=== PATIENT | male | born 1960 | race Two or more races ===

== ENCOUNTER → 2017-02-16 | Outpatient (REF) | payer BC | LOC: M LAB REF 17:24 | PROVIDERS: ATTEND Surgery | DX: L97.312 Non-pressure chronic ulcer of right ankle with fat layer exposed (principal); I87.311 Chronic venous hypertension (idiopathic) with ulcer of right lower extremity ==

== ENCOUNTER → 2017-06-04 | Outpatient (CLI) | payer BC ==
[~2017-06-04] MED LIST: GASTROGRAFIN SOLUTION 30ML (Q9963) As Ordered ONE; ISOVUE-370 76% 100ML VIAL (Q9967) As Ordered ONE
--- NOTE | 2017-06-05 04:15 | REP ---
Clinical: Idiopathic venous hypertension with lower extremity and lower abdominal pain. Technique: Axial contrast enhanced images from the lung bases to the pubic symphysis using oral and 100 ml Isovue 370 intravenous contrast material with coronal and sagittal re-formations. Comparison: None. Findings: The lung bases demonstrate chronic interstitial changes along with few scattered noncalcified nodules measuring up to approximately 9 mm in the left lower lobe as well as minimal scattered bilateral scarring. Liver, spleen, pancreas, gallbladder, bilateral adrenal glands and kidneys appear relatively normal. Small hiatal hernia identified at the gastroesophageal junction. The enteric system is without obstruction or acute inflammatory process. Scattered diverticula noted without acute diverticulitis. Pelvis demonstrates a 3.5 cm right posterior bladder diverticulum. The prostate gland is mildly prominent and measures up to 4.8 cm transverse diameter. No pelvic fluid or ascites. Subcentimeter mesenteric and retroperitoneal lymph nodes are nonspecific and likely within normal limits. No abdominal pelvic mass lesion identified. Abdominal aorta and vasculature appears normal and without aneurysm or dissection. Musculoskeletal structures demonstrate degenerative changes without focal osseous abnormality. Impression: 1. Lung bases demonstrate scattered noncalcified nodules measuring up to 9 mm warranting contrast enhanced chest CT for further investigation. 2. Scattered colonic diverticula without acute diverticulitis. 3. 2 cm fat containing periumbilical hernia. 4. Scattered colonic diverticula. 5. 3.5 cm right posterior bladder diverticulum. Minimally prominent prostate gland. Signed by Bar Ma MD 06/05/2017 04:07 A
== END ==
LOC: M RAD 14:57
PROVIDERS: ATTEND Surgery
DX: I87.311 Chronic venous hypertension (idiopathic) with ulcer of right lower extremity (principal)
CPT/HCPCS: 74177; Q9963; Q9967

== ENCOUNTER → 2017-12-21 | Outpatient (REF) | payer BC ==
[2017-12-21 19:35] LABS: INR 1.86
[2017-12-21 19:42] LABS: ESTIMATED AVERAGE GLUCOSE 137 MG/DL (60-110); HEMOGLOBIN A1c 6.4 %
== END ==
LOC: M SFHCLACO 19:08
DX: R73.9 Hyperglycemia, unspecified (principal); Z79.01 Long term (current) use of anticoagulants
CPT/HCPCS: 83036

== ENCOUNTER → 2018-01-29 | Outpatient (REF) | payer BC ==
[2018-01-29 18:38] LABS: INR 3.44; PROTHROMBIN TIME 36.3 SECONDS (12.4-14.5)
== END ==
LOC: M SFHCLACO 17:17
DX: Z79.01 Long term (current) use of anticoagulants (principal); Z51.81 Encounter for therapeutic drug level monitoring
CPT/HCPCS: 85610

== ENCOUNTER → 2018-02-13 | Outpatient (REF) | payer BC ==
[2018-02-13 19:40] LABS: INR 2.29; PROTHROMBIN TIME 26.1 SECONDS (12.4-14.5)
== END ==
LOC: M SFHCADAM 15:13
DX: Z79.01 Long term (current) use of anticoagulants (principal)
CPT/HCPCS: 85610

== ENCOUNTER → 2018-03-07 | Outpatient (REF) | payer BC ==
[2018-03-07 19:41] LABS: INR 2.85; PROTHROMBIN TIME 30.6 SECONDS (12.1-14.4)
== END ==
LOC: M SFHCADAM 15:26
DX: Z79.01 Long term (current) use of anticoagulants (principal)
CPT/HCPCS: 85610

== ENCOUNTER → 2018-06-26 | Outpatient (REF) | payer BC ==
[2018-06-26 19:58] LABS: INR 2.75; PROTHROMBIN TIME 29.6 SECONDS (12.1-14.4)
== END ==
LOC: M SFHCLACO 15:22
DX: Z51.81 Encounter for therapeutic drug level monitoring (principal); Z79.01 Long term (current) use of anticoagulants

== ENCOUNTER → 2018-07-03 | Outpatient (REF) | payer BC ==
[2018-07-03 17:22] LABS: PROTHROMBIN TIME 26.6 SECONDS (12.1-14.4)
[2018-07-03 17:25] LABS: ESTIMATED AVERAGE GLUCOSE 134 MG/DL (60-110); HEMOGLOBIN A1c 6.3 %
[2018-07-03 17:47] LABS: ALBUMIN 3.8 GM/DL (3.2-5.2); ALBUMIN/GLOBULIN RATIO 1.31 (1.00-1.93); ALKALINE PHOSPHATASE 62 U/L (45-117); ALT/SGPT 25 U/L (12-78); ANION GAP 5 MEQ/L (8-16); AST/SGOT 18 U/L (7-37); BLOOD UREA NITROGEN 26 MG/DL (7-18); CALCIUM LEVEL 8.7 MG/DL (8.5-10.1); CARBON DIOXIDE LEVEL 32 MEQ/L (21-32); CHLORIDE LEVEL 103 MEQ/L (98-107); CHOLESTEROL LEVEL 181 MG/DL (<200); CHOLESTEROL RISK RATIO 4.525 (<5); CREATININE FOR GFR 1.44 MG/DL (0.70-1.30); GLOMERULAR FILTRATION RATE 53.8 (>56); GLUCOSE, FASTING 81 MG/DL (70-100); HDL CHOLESTEROL 40 MG/DL (>40); LDL CHOLESTEROL 117 MG/DL (<100); NON-HDL-C 141 MG/DL; SODIUM LEVEL 140 MEQ/L (136-145); TOTAL PROTEIN 6.7 GM/DL (6.4-8.2); TRIGLYCERIDES LEVEL 122 MG/DL (<150)
== END ==
LOC: M SFHCLACO 15:01
DX: E11.51 Type 2 diabetes mellitus with diabetic peripheral angiopathy without gangrene (principal); I10 Essential (primary) hypertension; E78.2 Mixed hyperlipidemia; Z79.01 Long term (current) use of anticoagulants

== ENCOUNTER → 2018-07-08 | Outpatient (CLI) | payer BC ==
[2018-07-08 19:22] LABS: VITAMIN B12 LEVEL 308 PG/ML (247-911)
[2018-07-09 10:03] LABS: ALBUMIN 4.28 GM/DL (3.29-5.55); ALBUMIN % 61.2 % (55.8-66.1); ALPHA-1-GLOBULINS 0.28 GM/DL (0.17-0.41); ALPHA-2-GLOBULINS 0.64 GM/DL (0.42-0.99); ALPHA-2-GLOBULINS % 9.1 % (7.1-11.8); BETA-1-GLOBULINS 0.45 GM/DL (0.28-0.60); BETA-1-GLOBULINS % 6.4 % (4.7-7.2); BETA-2-GLOBULINS 0.36 GM/DL (0.19-0.55); BETA-2-GLOBULINS % 5.2 % (3.2-6.5); GAMMA GLOBULIN % 14.1 % (11.1-18.8); GAMMA GLOBULINS 0.99 GM/DL (0.65-1.58)
[2018-07-11 00:07] LABS: ANTI THROMBIN 3 ANTIGEN IMMUNO 76 % (72-124); ANTI THROMBIN 3 FUNCT ACTIVITY 96 % (75-135)
[2018-07-11 00:07] LABS: HOMOCYST(E)INE SERUM 30.2 umol/L (0.0-15.0)
== END ==
LOC: M LABDRWAD 15:49
DX: M79.604 Pain in right leg (principal); M79.605 Pain in left leg; R22.43 Localized swelling, mass and lump, lower limb, bilateral; I82.403 Acute embolism and thrombosis of unspecified deep veins of lower extremity, bilateral
CPT/HCPCS: 84165

== ENCOUNTER → 2018-07-12 | Outpatient (CLI) | payer BC | LOC: M RAD 16:05 | DX: I82.431 Acute embolism and thrombosis of right popliteal vein (principal); M79.604 Pain in right leg; M79.605 Pain in left leg | CPT/HCPCS: 93970 ==

== ENCOUNTER → 2018-08-21 | Outpatient (REF) | payer BC ==
[~2018-08-21] MED LIST changes: +FENO134C PO; +FOLBTAB2 PO; +FOLTTAB9 PO; -GASTROGRAFIN SOLUTION 30ML (Q9963) As Ordered ONE; +HYDR-4517 PO; +HYDR25TAB PO; -ISOVUE-370 76% 100ML VIAL (Q9967) As Ordered ONE; +LOSA100T50 PO; +METO1TAB7 PO; +NEUR800T PO; +PENT400T47 PO; +WARF-23 PO; +WARF05TA PO
[2018-08-21 19:48] LABS: INR 2.78; PROTHROMBIN TIME 29.9 SECONDS (12.1-14.4)
== END ==
LOC: M LABDRWAD 09:36
PROVIDERS: ATTEND Physician Assistant
DX: Z79.01 Long term (current) use of anticoagulants (principal)

== ENCOUNTER → 2018-09-25 | Outpatient (CLI) | payer BC ==
[2018-09-25 15:33] LABS: INR 2.47; PROTHROMBIN TIME 27.3 SECONDS (12.1-14.4)
[2018-09-25 15:46] LABS: ALBUMIN 4.2 GM/DL (3.2-5.2); BILIRUBIN,TOTAL 0.9 MG/DL (0.2-1.0); CALCIUM LEVEL 8.9 MG/DL (8.5-10.1); CHOLESTEROL RISK RATIO 3.702 (<5); CREATININE FOR GFR 1.32 MG/DL (0.70-1.30); GLOMERULAR FILTRATION RATE 59.5 (>56); POTASSIUM SERUM 3.9 MEQ/L (3.5-5.1); TOTAL PROTEIN 6.9 GM/DL (6.4-8.2)
[2018-09-25 15:48] LABS: HEMOGLOBIN A1c 6.6 %
== END ==
LOC: M LAB 14:50
PROVIDERS: ATTEND Physician Assistant
DX: I10 Essential (primary) hypertension (principal); E78.2 Mixed hyperlipidemia; E11.51 Type 2 diabetes mellitus with diabetic peripheral angiopathy without gangrene; Z79.01 Long term (current) use of anticoagulants

== ENCOUNTER → 2018-12-25 | Outpatient (REF) | payer BC ==
[2018-12-25 20:45] LABS: ALBUMIN 4.2 GM/DL (3.2-5.2); BILIRUBIN,TOTAL 0.4 MG/DL (0.2-1.0); CALCIUM LEVEL 8.8 MG/DL (8.5-10.1); CHOLESTEROL RISK RATIO 4.35 (<5); CREATININE FOR GFR 1.7 MG/DL (0.70-1.30); GLOMERULAR FILTRATION RATE 44.3 (>56); POTASSIUM SERUM 4.2 MEQ/L (3.5-5.1)
[2018-12-25 21:06] LABS: HEMOGLOBIN A1c 6.5 %
== END ==
LOC: M SFHCADAM 15:59
PROVIDERS: ATTEND Physician Assistant
DX: I10 Essential (primary) hypertension (principal); E11.51 Type 2 diabetes mellitus with diabetic peripheral angiopathy without gangrene; E78.2 Mixed hyperlipidemia

== ENCOUNTER → 2019-01-01 | Outpatient (REF) | payer BC ==
[2019-01-01 19:32] LABS: INR 2.45; PROTHROMBIN TIME 27.1 SECONDS (12.1-14.4)
== END ==
LOC: M SFHCADAM 15:51
PROVIDERS: ATTEND Physician Assistant
DX: Z79.01 Long term (current) use of anticoagulants (principal)

== ENCOUNTER → 2019-03-04 | Outpatient (REF) | payer BC ==
[2019-03-04 19:54] LABS: INR 2.52
== END ==
LOC: M SFHCADAM 15:56
PROVIDERS: ATTEND Physician Assistant
DX: Z79.01 Long term (current) use of anticoagulants (principal)

== ENCOUNTER → 2019-04-10 | Outpatient (REF) | payer BC ==
[2019-04-10 19:22] LABS: ALBUMIN 3.8 GM/DL (3.2-5.2); BILIRUBIN,TOTAL 0.6 MG/DL (0.2-1.0); CALCIUM LEVEL 8.7 MG/DL (8.5-10.1); CHOLESTEROL RISK RATIO 3.72 (<5); CREATININE FOR GFR 1.7 MG/DL (0.70-1.30); GLOMERULAR FILTRATION RATE 44.3 (>56); TOTAL PROTEIN 6.7 GM/DL (6.4-8.2)
[2019-04-10 19:45] LABS: INR 2.59; PROTHROMBIN TIME 27.6 SECONDS (11.8-14.0)
[2019-04-10 20:46] LABS: HEMOGLOBIN A1c 6.7 %
== END ==
LOC: M SFHCADAM 15:35
PROVIDERS: ATTEND Physician Assistant
DX: I10 Essential (primary) hypertension (principal); E78.2 Mixed hyperlipidemia; E11.51 Type 2 diabetes mellitus with diabetic peripheral angiopathy without gangrene; Z79.01 Long term (current) use of anticoagulants

== ENCOUNTER → 2019-05-13 | Outpatient (POV) | payer BC ==
[~2019-05-13] VITALS: Ht 182.9 cm; Wt 111.4 kg
[2019-05-13 15:00] VITALS: BP 129/66
--- NOTE | 2019-05-14 15:47 | IRCOV ---
[facility] IR Consult Office Visit IR Consult Office Visit DATE: May 13, 2019 REASON FOR CONSULTATION/CHIEF COMPLAINT: Bilateral lower extremity ulcers. HISTORY OF PRESENT ILLNESS: 58-year-old male with protein S deficiency, hypercoagulable state and prior deep vein thrombosis, presents with chronic bilateral lower extremity venous hypertension and stasis ulcers. These are under the care of wound care with regular wound debridement, Hydrofera Blue dressings and Unna boot for compression without significant progression in healing. Patient reports prior vein stripping procedure several years ago after which pain and ulcers started. Patient is unable to stand because of pain. Complains of burning and tingling in the legs. Patient has been on blood thinners for over 6 years. No history of thrombolysis. ALLERGIES: Please see below. HOME MEDICATIONS: Please see below. PAST MEDICAL HISTORY: Venous ulcers. Hypertension. High cholesterol. PAST SURGICAL HISTORY: Vein stripping bilateral 2016 FAMILY HISTORY: Nonsignificant. SOCIAL HISTORY: Denies alcohol. Nonsmoker. REVIEW OF SYSTEMS: Otherwise negative. PHYSICAL EXAMINATION: VITAL SIGNS: Please see below. GENERAL APPEARANCE: Comfortable at rest. Distress on walking. HEENT: No scleral icterus. RESPIRATORY: Symmetric breath sounds. CARDIOVASCULAR: Normal rate. ABDOMEN: Soft nontender. Nondistended. EXTREMITIES: Right lower extremity: Edema to the knees. Skin changes, skin thickening. Compression and Unna boot Right lower extremity: Edema to the knees. Skin changes, skin thickening, Compression dressing. NEUROLOGICAL: Alert and oriented. PSYCHIATRIC: Appropriate to circumstance. LABORATORY DATA: Please see below. Imaging: I personally reviewed the ultrasound of the deep venous structures obtained in June 2018. At that time, the deep veins of bilateral lower extremities appeared grossly patent. No superficial venous study available. ASSESSMENT/PLAN: 58-year-old male with chronic bilateral venous hypertension CEAP 6 with nonhealing active venous ulcers. History of vein stripping and prior blood clots. Patient requires thorough ultrasound imaging of the deep and superficial venous system in the legs before any further intervention can be planned. I will schedule the patient for the study. I spent 30 minutes in consultation with the patient. Thank you for this referral. Allergies Coded Allergies: No Known Allergies (Unverified , 07/04/18) Home Medications Scheduled Cyanocobalamin/Folic AC/Vit B6 (Folbee Tablet), 1 TAB PO BID Fenofibrate,Micronized (Fenofibrate), 134 MG PO DAILY, (Reported) Gabapentin (Neurontin), 800 MG PO TID, (Reported) Hydrochlorothiazide (Hydrochlorothiazide), 25 MG PO DAILY, (Reported) Losartan Potassium (Losartan Potassium), 100 MG PO DAILY, (Reported) Metoprolol Succinate (Metoprolol Succinate), 50 MG PO DAILY, (Reported) Pentoxifylline (Pentoxifylline), 400 MG PO BID, (Reported) Warfarin Sodium (Warfarin Sodium), 5 MG PO DAILY, (Reported) Scheduled PRN Hydrocodone/Acetaminophen (Hydrocodone-Acetamin 10-325 mg), 1 TAB PO QIDP PRN for pain, (Reported) VS, I&O, 24H, Fishbone Vital Signs/I&O Vital Signs Date Time Temp Pulse Resp B/P (MAP) Pulse Ox O2 Delivery O2 Flow Rate FiO2 05/13/19 15:00 97.4 67 16 129/66 (87) 94 REAL GOSS MD May 14, 2019 15:47
== END ==
LOC: M IRPOV 15:06
PROVIDERS: ATTEND Radiology Diagnostic Radiology
DX: I87.333 Chronic venous hypertension (idiopathic) with ulcer and inflammation of bilateral lower extremity (principal); I10 Essential (primary) hypertension; E78.00 Pure hypercholesterolemia, unspecified; D53.0 Protein deficiency anemia; Z86.718 Personal history of other venous thrombosis and embolism

== ENCOUNTER → 2019-05-27 | Outpatient (REF) | payer BC ==
[2019-05-27 19:49] LABS: INR 3.37; PROTHROMBIN TIME 34.1 SECONDS (11.8-14.0)
== END ==
LOC: M SFHCADAM 16:20
PROVIDERS: ATTEND Physician Assistant
DX: Z79.01 Long term (current) use of anticoagulants (principal)

== ENCOUNTER → 2019-06-24 | Outpatient (REF) | payer BC ==
[2019-06-24 19:51] LABS: INR 3.95; PROTHROMBIN TIME 38.7 SECONDS (11.8-14.0)
== END ==
LOC: M SFHCADAM 15:29
PROVIDERS: ATTEND Physician Assistant
DX: Z79.01 Long term (current) use of anticoagulants (principal)

== ENCOUNTER → 2019-07-02 | Outpatient (REF) | payer BC ==
[2019-07-02 19:50] LABS: BASO # 0.1 10^3/uL (0.0-0.2); BASO % 0.7 % (0.0-1.0); EOS # 0.3 10^3/uL (0.0-0.5); EOS % 3.9 % (0.0-3.0); HEMATOCRIT 42.4 % (42.0-52.0); HEMOGLOBIN 13.5 g/dl (13.5-17.5); LYMPH # 1.5 10^3/uL (1.5-5.0); LYMPH % 22.5 % (24.0-44.0); MEAN CORPUSCULAR HEMOGLOBIN 29.7 pg (27.0-33.0); MEAN CORPUSCULAR HGB CONC 31.8 g/dl (32.0-36.5); MEAN CORPUSCULAR VOLUME 93.2 fl (80.0-96.0); MONO # 0.7 10^3/uL (0.0-0.8); MONO % 9.9 % (0.0-5.0); NEUTROPHILS # 4.2 10^3/uL (1.5-8.5); NEUTROPHILS % 62.7 % (36.0-66.0); PLATELET COUNT, AUTOMATED 185 10^3/uL (150-450); RED BLOOD COUNT 4.55 10^6/uL (4.30-6.10); WHITE BLOOD COUNT 6.7 10^3/uL (4.0-10.0)
[2019-07-02 19:56] LABS: ALBUMIN 3.7 GM/DL (3.2-5.2)
== END ==
LOC: M LABDRWAD 19:06
PROVIDERS: ATTEND Orthopaedic Surgery
DX: Z01.818 Encounter for other preprocedural examination (principal); D63.8 Anemia in other chronic diseases classified elsewhere; M25.559 Pain in unspecified hip; M16.12 Unilateral primary osteoarthritis, left hip

== ENCOUNTER → 2019-07-21 | Outpatient (REF) | payer BC ==
[2019-07-21 20:38] LABS: INR 2.98; PROTHROMBIN TIME 30.9 SECONDS (11.8-14.0)
== END ==
LOC: M SFHCADAM 15:59
PROVIDERS: ATTEND Physician Assistant
DX: Z79.01 Long term (current) use of anticoagulants (principal)

== ENCOUNTER → 2019-07-31 | Outpatient (REF) | payer BC ==
[2019-07-31 18:02] LABS: BASO # 0.1 10^3/uL (0.0-0.2); BASO % 0.8 % (0.0-1.0); EOS # 0.2 10^3/uL (0.0-0.5); EOS % 2.7 % (0.0-3.0); HEMATOCRIT 42.8 % (42.0-52.0); HEMOGLOBIN 14.1 g/dl (13.5-17.5); LYMPH # 1.4 10^3/uL (1.5-5.0); LYMPH % 19.1 % (24.0-44.0); MEAN CORPUSCULAR HEMOGLOBIN 29.7 pg (27.0-33.0); MEAN CORPUSCULAR HGB CONC 32.9 g/dl (32.0-36.5); MEAN CORPUSCULAR VOLUME 90.1 fl (80.0-96.0); MONO # 0.7 10^3/uL (0.0-0.8); MONO % 9.1 % (0.0-5.0); PLATELET COUNT, AUTOMATED 196 10^3/uL (150-450); RED BLOOD COUNT 4.75 10^6/uL (4.30-6.10); WHITE BLOOD COUNT 7.3 10^3/uL (4.0-10.0)
[2019-07-31 18:09] LABS: ALBUMIN 3.9 GM/DL (3.2-5.2); BILIRUBIN,TOTAL 0.6 MG/DL (0.2-1.0); CALCIUM LEVEL 8.7 MG/DL (8.5-10.1); CHOLESTEROL RISK RATIO 3.425 (<5); CREATININE FOR GFR 1.48 MG/DL (0.70-1.30); FREE T4 1.27 NG/DL (0.76-1.46); POTASSIUM SERUM 3.9 MEQ/L (3.5-5.1); THYROID STIMULATING HORMONE 1.09 uIU/ML (0.358-3.740); TOTAL PROTEIN 6.8 GM/DL (6.4-8.2)
[2019-07-31 18:21] LABS: INR 2.44; PROTHROMBIN TIME 26.3 SECONDS (11.8-14.0)
[2019-07-31 18:22] LABS: PARTIAL THROMBOPLASTIN TIME 38.1 SECONDS (25.0-38.4)
== END ==
LOC: M SFHCPLAZ 15:25
PROVIDERS: ATTEND Family Medicine
DX: Z01.818 Encounter for other preprocedural examination (principal); E11.51 Type 2 diabetes mellitus with diabetic peripheral angiopathy without gangrene; Z86.718 Personal history of other venous thrombosis and embolism

== ENCOUNTER → 2019-08-25 | Outpatient (REF) | payer BC ==
[2019-08-25 20:05] LABS: INR 2.33; PROTHROMBIN TIME 25.4 SECONDS (11.8-14.0)
[2019-08-25 20:06] LABS: PARTIAL THROMBOPLASTIN TIME 37.4 SECONDS (25.0-38.4)
== END ==
LOC: M SFHCPLAZ 18:55
PROVIDERS: ATTEND Family Medicine
DX: Z86.718 Personal history of other venous thrombosis and embolism (principal)

== ENCOUNTER → 2019-10-20 | Outpatient (REF) | payer BC ==
[2019-10-20 19:34] LABS: INR 2.25; PROTHROMBIN TIME 24.7 SECONDS (11.8-14.0)
[2019-10-20 19:35] LABS: PARTIAL THROMBOPLASTIN TIME 37.9 SECONDS (25.0-38.4)
== END ==
LOC: M LABDRWAD 19:17
PROVIDERS: ATTEND Family Medicine
DX: Z79.01 Long term (current) use of anticoagulants (principal); Z79.899 Other long term (current) drug therapy

== ENCOUNTER → 2019-11-27 | Outpatient (REF) | payer BC ==
[2019-11-27 19:43] LABS: INR 2.05; PROTHROMBIN TIME 22.9 SECONDS (11.8-14.0)
== END ==
LOC: M SFHCADAM 15:32
PROVIDERS: ATTEND Physician Assistant
DX: Z79.01 Long term (current) use of anticoagulants (principal)

== ENCOUNTER → 2019-12-30 | Outpatient (REF) | payer BC ==
[2019-12-30 18:54] LABS: INR 2.03; PROTHROMBIN TIME 22.8 SECONDS (11.8-14.0)
== END ==
LOC: M SFHCADAM 16:46
PROVIDERS: ATTEND Physician Assistant
DX: Z79.01 Long term (current) use of anticoagulants (principal)

== ENCOUNTER → 2019-12-30 | Outpatient (CLI) | payer BC ==
[2019-12-30 19:09] LABS: C REACTIVE PROTEIN QUANTITATIV 0.36 MG/DL (0.00-0.30); RHEUMATOID FACTOR QUANT < 10.0 IU/ML (<15.0)
[2020-01-06 14:11] LABS: ANTINUCLEAR ANTIBODIES DIRECT Negative (Negative); CYCLIC CITRULLINATED PEPTIDE 10 units (0-19); HLA-B27 Negative (.)
== END ==
LOC: M LABDRWAD 16:42
PROVIDERS: ATTEND Nurse Practitioner Family
DX: M06.4 Inflammatory polyarthropathy (principal)

== ENCOUNTER → 2019-12-30 | Outpatient (CLI) | payer BC ==
--- NOTE | 2019-12-31 04:09 | REP ---
Clinical: Right shoulder pain. Technique: Internal rotation, external rotation, and Y view of the right shoulder. Findings: Cortical irregularity at the acromioclavicular joint along with subtle irregular blunting and sclerosis involving the inferior half of the glenoid rim. No acute fracture dislocation. Subacromial space is normal. No periarticular calcifications or loose bodies are identified. Impression: Mild arthritic changes. Electronically Signed by Bar Ma MD 12/31/2019 04:00 A
== END ==
LOC: M ADAMS 16:28
PROVIDERS: ATTEND Nurse Practitioner Family
DX: M75.41 Impingement syndrome of right shoulder (principal)

== ENCOUNTER → 2020-02-18 | Outpatient (REF) | payer BC ==
[2020-02-18 19:04] LABS: INR 2.15; PROTHROMBIN TIME 23.8 SECONDS (11.8-14.0)
== END ==
LOC: M SFHCADAM 15:31
PROVIDERS: ATTEND Physician Assistant
DX: Z79.01 Long term (current) use of anticoagulants (principal)

== ENCOUNTER → 2020-06-24 | Outpatient (REF) | payer BC ==
[2020-06-24 17:32] LABS: INR 1.75; PROTHROMBIN TIME 20.8 SECONDS (12.5-14.3)
== END ==
LOC: M SFHCADAM 15:30
PROVIDERS: ATTEND Physician Assistant
DX: Z79.01 Long term (current) use of anticoagulants (principal)

== ENCOUNTER → 2020-08-05 | Outpatient (REF) | payer BC ==
[2020-08-06 13:32] LABS: INR 1.6; PROTHROMBIN TIME 19.4 SECONDS (12.5-14.3)
[2020-08-06 13:51] LABS: ALBUMIN 3.7 GM/DL (3.2-5.2); BILIRUBIN,TOTAL 0.6 MG/DL (0.2-1.0); CHOLESTEROL RISK RATIO 3.7 (<5); CREATININE FOR GFR 1.73 MG/DL (0.70-1.30); GLOMERULAR FILTRATION RATE 43.3 (>56); POTASSIUM SERUM 5.6 MEQ/L (3.5-5.1); TOTAL PROTEIN 6.7 GM/DL (6.4-8.2)
== END ==
LOC: M SFHCADAM 15:35
PROVIDERS: ATTEND Physician Assistant
DX: E11.51 Type 2 diabetes mellitus with diabetic peripheral angiopathy without gangrene (principal); Z01.818 Encounter for other preprocedural examination; Z79.01 Long term (current) use of anticoagulants

== ENCOUNTER → 2020-08-18 | Outpatient (REF) | payer BC | LOC: M LAB 21:47 | PROVIDERS: ATTEND Physician Assistant | DX: Z20.828 Contact with and (suspected) exposure to other viral communicable diseases (principal) ==

== ENCOUNTER → 2020-09-02 | Outpatient (REF) | payer BC ==
[2020-09-02 17:23] LABS: INR 3.96; PROTHROMBIN TIME 39.6 SECONDS (12.5-14.3)
== END ==
LOC: M SFHCADAM 15:10
PROVIDERS: ATTEND Physician Assistant
DX: Z79.01 Long term (current) use of anticoagulants (principal)

== ENCOUNTER → 2020-10-20 | Outpatient (REF) | payer BC ==
[~2020-10-20] MED LIST changes: +HYDR-3490 PO; -HYDR25TAB PO
[2020-10-20 19:22] LABS: INR 1.9; PROTHROMBIN TIME 22.2 SECONDS (12.5-14.3)
== END ==
LOC: M SFHCADAM 15:54
PROVIDERS: ATTEND Physician Assistant
DX: Z79.01 Long term (current) use of anticoagulants (principal)

== ENCOUNTER → 2020-11-25 | Outpatient (REF) | payer BC ==
[2020-11-25 18:51] LABS: INR 3.55; PROTHROMBIN TIME 36.3 SECONDS (12.5-14.3)
== END ==
LOC: M SFHCPLAZ 15:36 → M SFHCADAM 15:42
PROVIDERS: ATTEND Physician Assistant
DX: Z79.01 Long term (current) use of anticoagulants (principal)

== ENCOUNTER → 2021-01-05 | Outpatient (REF) | payer BC ==
[2021-01-05 19:34] LABS: INR 3.08; PROTHROMBIN TIME 32.5 SECONDS (12.5-14.3)
== END ==
LOC: M SFHCPLAZ 15:39 → M SFHCADAM 15:43
PROVIDERS: ATTEND Physician Assistant
DX: Z79.01 Long term (current) use of anticoagulants (principal)

== ENCOUNTER → 2021-01-10 | Outpatient (REF) | payer BC ==
[2021-01-10 18:44] LABS: INR 3.51
== END ==
LOC: M SFHCADAM 15:39
PROVIDERS: ATTEND Physician Assistant
DX: Z79.01 Long term (current) use of anticoagulants (principal)

== ENCOUNTER → 2021-01-26 | Outpatient (REF) | payer BC ==
[2021-01-26 19:01] LABS: INR 3.08; PROTHROMBIN TIME 32.5 SECONDS (12.5-14.3)
== END ==
LOC: M SFHCADAM 18:21
PROVIDERS: ATTEND Physician Assistant
DX: Z79.01 Long term (current) use of anticoagulants (principal)

== ENCOUNTER → 2021-02-03 | Outpatient (REF) | payer BC ==
[2021-02-03 18:06] LABS: INR 2.7; PROTHROMBIN TIME 29.3 SECONDS (12.5-14.3)
[2021-02-03 18:09] LABS: ALBUMIN 3.7 GM/DL (3.2-5.2); ALT/SGPT 20 U/L (12-78); BILIRUBIN,TOTAL 0.8 MG/DL (0.2-1.0); BLOOD UREA NITROGEN 23 MG/DL (7-18); CALCIUM LEVEL 8.6 MG/DL (8.8-10.2); CARBON DIOXIDE LEVEL 32 MEQ/L (21-32); CHLORIDE LEVEL 101 MEQ/L (98-107); CHOLESTEROL LEVEL 133 MG/DL (<200); CHOLESTEROL RISK RATIO 2.829 (<5); CREATININE FOR GFR 1.21 MG/DL (0.70-1.30); GLOMERULAR FILTRATION RATE > 60.0 (>49); GLUCOSE, FASTING 77 MG/DL (70-100); HDL CHOLESTEROL 47 MG/DL (>40); HEMOGLOBIN A1c 5.8 %; LDL CHOLESTEROL 69 MG/DL (<100); NON-HDL-C 86 MG/DL; SODIUM LEVEL 138 MEQ/L (136-145); TOTAL PROTEIN 6.7 GM/DL (6.4-8.2); TRIGLYCERIDES LEVEL 83 MG/DL (<150)
== END ==
LOC: M SFHCADAM 15:31
PROVIDERS: ATTEND Physician Assistant
DX: Z01.818 Encounter for other preprocedural examination (principal); E11.51 Type 2 diabetes mellitus with diabetic peripheral angiopathy without gangrene; Z86.718 Personal history of other venous thrombosis and embolism

== ENCOUNTER → 2021-03-24 | Outpatient (REF) | payer BC ==
[2021-03-24 18:36] LABS: INR 3.15; PROTHROMBIN TIME 33.1 SECONDS (12.5-14.3)
== END ==
LOC: M SFHCADAM 15:30
PROVIDERS: ATTEND Physician Assistant
DX: Z86.718 Personal history of other venous thrombosis and embolism (principal); Z79.01 Long term (current) use of anticoagulants

== ENCOUNTER → 2021-04-13 | Outpatient (REF) | payer BC ==
[2021-04-13 17:51] LABS: INR 2.9; PROTHROMBIN TIME 30.7 SECONDS (12.7-14.5)
== END ==
LOC: M SFHCADAM 15:55
PROVIDERS: ATTEND Physician Assistant
DX: Z86.718 Personal history of other venous thrombosis and embolism (principal); Z79.01 Long term (current) use of anticoagulants

== ENCOUNTER → 2021-04-28 | Outpatient (REF) | payer BC ==
[2021-04-28 20:28] LABS: INR 1.99
== END ==
LOC: M SFHCADAM 15:31
PROVIDERS: ATTEND Physician Assistant
DX: Z86.718 Personal history of other venous thrombosis and embolism (principal); Z79.01 Long term (current) use of anticoagulants

== ENCOUNTER → 2021-05-24 | Outpatient (REF) | payer BC ==
[2021-05-24 19:16] LABS: INR 2.91; PROTHROMBIN TIME 30.7 SECONDS (12.7-14.5)
== END ==
LOC: M SFHCADAM 15:40
PROVIDERS: ATTEND Physician Assistant
DX: Z86.718 Personal history of other venous thrombosis and embolism (principal)

== ENCOUNTER → 2021-05-25 | Outpatient (REF) | payer BC ==
[2021-05-25 18:07] LABS: BASO % 0.6 % (0.0-1.0); EOS # 0.2 10^3/uL (0.0-0.5); EOS % 3.2 % (0.0-3.0); HEMATOCRIT 42.9 % (42.0-52.0); HEMOGLOBIN 14.3 g/dl (13.5-17.5); LYMPH # 1.2 10^3/uL (1.5-5.0); LYMPH % 17.8 % (24.0-44.0); MEAN CORPUSCULAR HGB CONC 33.3 g/dl (32.0-36.5); MEAN CORPUSCULAR VOLUME 89.9 fl (80.0-96.0); MONO # 0.7 10^3/uL (0.0-0.8); NEUTROPHILS # 4.5 10^3/uL (1.5-8.5); NEUTROPHILS % 67.9 % (36.0-66.0); PLATELET COUNT, AUTOMATED 177 10^3/uL (150-450); RED BLOOD COUNT 4.77 10^6/uL (4.30-6.10); WHITE BLOOD COUNT 6.6 10^3/uL (4.0-10.0)
[2021-05-25 18:27] LABS: ALBUMIN 3.5 GM/DL (3.2-5.2); PERCENT SATURATION 19.7 % (19.7-50.0)
== END ==
LOC: M LABDRWAD 17:07
PROVIDERS: ATTEND Orthopaedic Surgery
DX: M25.559 Pain in unspecified hip (principal); M16.12 Unilateral primary osteoarthritis, left hip; Z01.818 Encounter for other preprocedural examination

== ENCOUNTER → 2021-06-15 | Outpatient (REF) | payer BC ==
[2021-06-15 17:31] LABS: INR 2.78; PROTHROMBIN TIME 29.7 SECONDS (12.7-14.5)
== END ==
LOC: M SFHCADAM 15:35
PROVIDERS: ATTEND Physician Assistant
DX: Z86.718 Personal history of other venous thrombosis and embolism (principal)

== ENCOUNTER → 2021-07-06 | Outpatient (REF) | payer BC ==
[2021-07-06 17:59] LABS: INR 2.96; PROTHROMBIN TIME 31.2 SECONDS (12.7-14.5)
== END ==
LOC: M SFHCADAM 15:32
PROVIDERS: ATTEND Physician Assistant
DX: Z86.718 Personal history of other venous thrombosis and embolism (principal)

== ENCOUNTER → 2021-08-16 | Outpatient (REF) | payer BC ==
[2021-08-16 18:27] LABS: INR 4.45; PROTHROMBIN TIME 42.5 SECONDS (12.7-14.5)
== END ==
LOC: M SFHCADAM 15:39
PROVIDERS: ATTEND Physician Assistant
DX: Z86.718 Personal history of other venous thrombosis and embolism (principal)

== ENCOUNTER → 2021-10-18 | Outpatient (REF) | payer BC ==
[~2021-10-18] MED LIST changes: +LOSA100T45 PO; -LOSA100T50 PO
[2021-10-18 19:19] LABS: INR 2.41; PROTHROMBIN TIME 26.6 SECONDS (12.7-14.5)
== END ==
LOC: M SFHCADAM 15:46
PROVIDERS: ATTEND Physician Assistant
DX: Z86.718 Personal history of other venous thrombosis and embolism (principal)

== ENCOUNTER → 2021-11-23 | Outpatient (REF) | payer BC ==
[~2021-11-23] MED LIST changes: -FENO134C PO; +FENO134C16 PO
[2021-11-23 17:00] LABS: ALBUMIN 3.9 GM/DL (3.2-5.2); BILIRUBIN,TOTAL 0.7 MG/DL (0.2-1.0); CALCIUM LEVEL 9.1 MG/DL (8.8-10.2); CREATININE FOR GFR 1.39 MG/DL (0.70-1.30); GLOMERULAR FILTRATION RATE 55.3 (>49); POTASSIUM SERUM 3.9 MEQ/L (3.5-5.1); TOTAL PROTEIN 7.1 GM/DL (6.4-8.2)
[2021-11-23 17:01] LABS: BASO # 0.1 10^3/uL (0.0-0.2); BASO % 0.6 % (0.0-1.0); EOS # 0.2 10^3/uL (0.0-0.5); EOS % 2.3 % (0.0-3.0); HEMATOCRIT 45.7 % (42.0-52.0); HEMOGLOBIN 15.3 g/dl (13.5-17.5); LYMPH # 1.5 10^3/uL (1.5-5.0); LYMPH % 18.5 % (24.0-44.0); MEAN CORPUSCULAR HEMOGLOBIN 29.4 pg (27.0-33.0); MEAN CORPUSCULAR HGB CONC 33.5 g/dl (32.0-36.5); MEAN CORPUSCULAR VOLUME 87.9 fl (80.0-96.0); MONO # 0.7 10^3/uL (0.0-0.8); MONO % 8.7 % (2.0-8.0); NEUTROPHILS # 5.4 10^3/uL (1.5-8.5); NEUTROPHILS % 69.5 % (36.0-66.0); PLATELET COUNT, AUTOMATED 168 10^3/uL (150-450); WHITE BLOOD COUNT 7.8 10^3/uL (4.0-10.0)
[2021-11-23 17:27] LABS: INR 1.92; PROTHROMBIN TIME 22.4 SECONDS (12.7-14.5)
[2021-11-23 17:43] LABS: HEMOGLOBIN A1c 6.2 %
== END ==
LOC: M SFHCADAM 14:08
PROVIDERS: ATTEND Family Medicine
DX: Z01.818 Encounter for other preprocedural examination (principal); I82.409 Acute embolism and thrombosis of unspecified deep veins of unspecified lower extremity

== ENCOUNTER → 2021-12-29 | Outpatient (REF) | payer BC ==
[2021-12-29 19:16] LABS: INR 1.68; PROTHROMBIN TIME 20.2 SECONDS (12.7-14.5)
== END ==
LOC: M SFHCADAM 14:09
PROVIDERS: ATTEND Physician Assistant
DX: Z86.718 Personal history of other venous thrombosis and embolism (principal)

== ENCOUNTER → 2022-02-08 | Outpatient (REF) | payer BC ==
[2022-02-08 17:30] LABS: INR 2.37; PROTHROMBIN TIME 26.3 SECONDS (12.7-14.5)
== END ==
LOC: M SFHCADAM 15:29
PROVIDERS: ATTEND Physician Assistant
DX: Z86.718 Personal history of other venous thrombosis and embolism (principal)

== ENCOUNTER → 2022-03-08 | Outpatient (REF) | payer BC ==
[2022-03-09 13:01] LABS: ALBUMIN 4.3 GM/DL (3.2-5.2); CALCIUM LEVEL 9.6 MG/DL (8.8-10.2); CHOLESTEROL RISK RATIO 2.87 (<5); CREATININE FOR GFR 1.48 MG/DL (0.70-1.30); GLOMERULAR FILTRATION RATE 51.4 (>49); POTASSIUM SERUM 4.3 MEQ/L (3.5-5.1); TOTAL PROTEIN 7.1 GM/DL (6.4-8.2)
[2022-03-09 13:49] LABS: HEMOGLOBIN A1c 5.9 %
== END ==
LOC: M SFHCADAM 16:09
PROVIDERS: ATTEND Family Medicine
DX: R39.9 Unspecified symptoms and signs involving the genitourinary system (principal); E78.2 Mixed hyperlipidemia; E11.51 Type 2 diabetes mellitus with diabetic peripheral angiopathy without gangrene
CPT/HCPCS: 80053; 80061; 83036; G0103

== ENCOUNTER → 2022-03-23 | Outpatient (CLI) | payer BC | LOC: M RAD 15:27 | PROVIDERS: ATTEND Family Medicine | DX: I82.433 Acute embolism and thrombosis of popliteal vein, bilateral (principal); I82.413 Acute embolism and thrombosis of femoral vein, bilateral ==

== ENCOUNTER → 2022-05-02 | Outpatient (CLI) | payer BC | LOC: M ADAMS 15:32 | PROVIDERS: ATTEND Family Medicine | DX: M47.896 Other spondylosis, lumbar region (principal); G89.29 Other chronic pain ==

== ENCOUNTER → 2022-10-16 | Outpatient (CLI) | payer OTHER ==
[~2022-10-16] MED LIST changes: -FENO134C16 PO; +FENO134C20 PO
== END ==
LOC: M SLEEP HO 11:24
PROVIDERS: ATTEND Physician Assistant
DX: R40.0 Somnolence (principal); R06.83 Snoring; G47.30 Sleep apnea, unspecified

== ENCOUNTER → 2023-01-08 | Outpatient (REF) | payer OTHER ==
[~2023-01-08] MED LIST changes: -LOSA100T45 PO; +LOSA100T46 PO
== END ==
LOC: M SFHCADAM 16:58
PROVIDERS: ATTEND Family Medicine
DX: Z79.01 Long term (current) use of anticoagulants (principal); Z53.9 Procedure and treatment not carried out, unspecified reason

== ENCOUNTER → 2023-08-08 | Outpatient (CLI) | payer OTHER | LOC: M SLEEP 20:00 | PROVIDERS: ATTEND Physician Assistant | DX: G47.33 Obstructive sleep apnea (adult) (pediatric) (principal) ==

== ENCOUNTER → 2023-11-13 | Outpatient (REF) | payer MEDICAID, OTHER | LOC: M SFHCADAM 15:57 | PROVIDERS: ATTEND Family Medicine | DX: Z79.01 Long term (current) use of anticoagulants (principal) ==

== ENCOUNTER → 2023-11-16 | Outpatient (REF) | payer MEDICAID | LOC: M SFHCADAM 15:07 | PROVIDERS: ATTEND Family Medicine | DX: Z79.01 Long term (current) use of anticoagulants (principal) ==

== ENCOUNTER → 2023-12-04 | Outpatient (REF) | payer MEDICAID, OTHER | LOC: M SFHCADAM 17:03 | PROVIDERS: ATTEND Family Medicine | DX: Z79.01 Long term (current) use of anticoagulants (principal) ==

== ENCOUNTER → 2024-01-28 | Outpatient (CLI) | payer OTHER | LOC: M PAIN 08:00 | PROVIDERS: ATTEND Nurse Practitioner Family | DX: M54.16 Radiculopathy, lumbar region (principal); M25.551 Pain in right hip; G89.4 Chronic pain syndrome; E78.2 Mixed hyperlipidemia; M16.0 Bilateral primary osteoarthritis of hip; I12.9 Hypertensive chronic kidney disease with stage 1 through stage 4 chronic kidney disease, or unspecified chronic kidney disease; E11.22 Type 2 diabetes mellitus with diabetic chronic kidney disease; E66.9 Obesity, unspecified; N18.30 Chronic kidney disease, stage 3 unspecified; G47.33 Obstructive sleep apnea (adult) (pediatric); Z87.891 Personal history of nicotine dependence; Z79.01 Long term (current) use of anticoagulants; Z79.899 Other long term (current) drug therapy; Z86.718 Personal history of other venous thrombosis and embolism; Z88.8 Allergy status to other drugs, medicaments and biological substances; Z68.32 Body mass index [BMI] 32.0-32.9, adult ==

== ENCOUNTER → 2024-03-13 | Outpatient (REF) | payer OTHER, MEDICAID | LOC: M LAB REF 16:14 | PROVIDERS: ATTEND Physician Assistant | DX: L97.922 Non-pressure chronic ulcer of unspecified part of left lower leg with fat layer exposed (principal) ==

== ENCOUNTER → 2024-03-14 | Outpatient (CLI) | payer OTHER, MEDICAID | LOC: M PLARAD 14:22 | PROVIDERS: ATTEND Nurse Practitioner Family | DX: M16.11 Unilateral primary osteoarthritis, right hip (principal); M54.16 Radiculopathy, lumbar region; Z96.642 Presence of left artificial hip joint; M51.86 Other intervertebral disc disorders, lumbar region ==

== ENCOUNTER → 2024-03-24 | Outpatient (CLI) | payer OTHER, MEDICAID | LOC: M PAIN 16:00 | PROVIDERS: ATTEND Nurse Practitioner Family | DX: M54.16 Radiculopathy, lumbar region (principal); M25.551 Pain in right hip; G89.4 Chronic pain syndrome; E78.2 Mixed hyperlipidemia; M16.0 Bilateral primary osteoarthritis of hip; I12.9 Hypertensive chronic kidney disease with stage 1 through stage 4 chronic kidney disease, or unspecified chronic kidney disease; E11.22 Type 2 diabetes mellitus with diabetic chronic kidney disease; E66.9 Obesity, unspecified; N18.30 Chronic kidney disease, stage 3 unspecified; G47.33 Obstructive sleep apnea (adult) (pediatric); Z86.718 Personal history of other venous thrombosis and embolism; Z87.891 Personal history of nicotine dependence; Z79.01 Long term (current) use of anticoagulants; Z79.1 Long term (current) use of non-steroidal anti-inflammatories (NSAID); Z79.891 Long term (current) use of opiate analgesic; Z79.899 Other long term (current) drug therapy; Z88.8 Allergy status to other drugs, medicaments and biological substances; Z91.048 Other nonmedicinal substance allergy status; Z68.31 Body mass index [BMI] 31.0-31.9, adult ==

== ENCOUNTER → 2024-03-25 | Outpatient (REF) | payer OTHER, MEDICAID | LOC: M SFHCADAM 17:17 | PROVIDERS: ATTEND Family Medicine | DX: Z53.9 Procedure and treatment not carried out, unspecified reason (principal) ==

== ENCOUNTER → 2024-03-26 | Outpatient (REF) | payer OTHER, MEDICAID | LOC: M SFHCADAM 13:21 | PROVIDERS: ATTEND Family Medicine | DX: Z86.718 Personal history of other venous thrombosis and embolism (principal) ==

== ENCOUNTER → 2024-04-01 | Outpatient (REF) | payer OTHER, MEDICAID | LOC: M SFHCADAM 17:45 | PROVIDERS: ATTEND Family Medicine | DX: Z79.01 Long term (current) use of anticoagulants (principal) ==

== ENCOUNTER → 2024-04-08 | Outpatient (REF) | payer OTHER, MEDICAID | LOC: M SFHCADAM 17:24 | PROVIDERS: ATTEND Family Medicine | DX: Z53.9 Procedure and treatment not carried out, unspecified reason (principal) ==

== ENCOUNTER → 2024-04-23 | Outpatient (REF) | payer OTHER, MEDICAID | LOC: M SFHCADAM 16:29 | PROVIDERS: ATTEND Family Medicine | DX: Z79.01 Long term (current) use of anticoagulants (principal); Z53.9 Procedure and treatment not carried out, unspecified reason ==

== ENCOUNTER → 2024-04-28 | Outpatient (REF) | payer OTHER, MEDICAID | LOC: M SFHCADAM 23:06 | PROVIDERS: ATTEND Family Medicine | DX: Z79.01 Long term (current) use of anticoagulants (principal) ==

== ENCOUNTER → 2024-04-30 | Outpatient (CLI) | payer OTHER, MEDICAID | LOC: M SOG 15:18 | PROVIDERS: ATTEND Physician Assistant | DX: M16.11 Unilateral primary osteoarthritis, right hip (principal) ==

== ENCOUNTER → 2024-05-07 | Outpatient (REF) | payer OTHER, MEDICAID | LOC: M SFHCADAM 17:19 | PROVIDERS: ATTEND Family Medicine | DX: Z79.01 Long term (current) use of anticoagulants (principal); Z53.9 Procedure and treatment not carried out, unspecified reason ==

== ENCOUNTER → 2024-05-29 | Outpatient (CLI) | payer OTHER, MEDICAID | LOC: M PAIN 16:30 | PROVIDERS: ATTEND Nurse Practitioner Family | DX: M54.16 Radiculopathy, lumbar region (principal); M25.551 Pain in right hip; G89.4 Chronic pain syndrome; E78.2 Mixed hyperlipidemia; M16.0 Bilateral primary osteoarthritis of hip; I12.9 Hypertensive chronic kidney disease with stage 1 through stage 4 chronic kidney disease, or unspecified chronic kidney disease; E11.22 Type 2 diabetes mellitus with diabetic chronic kidney disease; E66.9 Obesity, unspecified; N18.30 Chronic kidney disease, stage 3 unspecified; G47.33 Obstructive sleep apnea (adult) (pediatric); Z87.891 Personal history of nicotine dependence; Z79.01 Long term (current) use of anticoagulants; Z79.1 Long term (current) use of non-steroidal anti-inflammatories (NSAID); Z79.899 Other long term (current) drug therapy; Z86.718 Personal history of other venous thrombosis and embolism; Z88.8 Allergy status to other drugs, medicaments and biological substances; Z91.048 Other nonmedicinal substance allergy status; Z68.32 Body mass index [BMI] 32.0-32.9, adult ==

== ENCOUNTER → 2024-07-18 | Outpatient (CLI) | payer OTHER, MEDICAID | LOC: M SLEEP 20:00 | PROVIDERS: ATTEND Physician Assistant | DX: G47.33 Obstructive sleep apnea (adult) (pediatric) (principal) ==

== ENCOUNTER → 2024-11-27 | Outpatient (REF) | payer OTHER, MEDICAID ==
[2024-11-27 14:13] LABS: CREATININE, URINE 99.3 MG/DL; MALB URINE SIEMENS < 3.0 MG/L
== END ==
LOC: M SFHCADAM 13:17
PROVIDERS: ATTEND Family Medicine
DX: E11.51 Type 2 diabetes mellitus with diabetic peripheral angiopathy without gangrene (principal)

== ENCOUNTER → 2025-02-21 | Outpatient (CLI) | payer MEDICAID, OTHER | LOC: M SLEEP 20:00 | PROVIDERS: ATTEND Physician Assistant | DX: G47.33 Obstructive sleep apnea (adult) (pediatric) (principal) ==